=== PATIENT | male | born 1950 | race Caucasian/White ===

== ENCOUNTER 2024-03-25 10:28 | Emergency (ER) | payer OTHER, MEDICAID, SELFPAY ==
[2024-03-25 10:41] VITALS: BP 149/94; PULSE 80; RESP 20; TEMP 36.6; O2SAT 98; BMI 24.5
[2024-03-25 11:23] VITALS: BP 166/80; PULSE 78; O2SAT 98
--- NOTE | 2024-03-25 11:37 | ED_ITS ---
HPI - General Adult General Chief complaint: Urogenital-Male Stated complaint: uti and needs cathader removed Time Seen by Provider: 03/25/24 10:35 Source: patient Mode of arrival: Ambulatory History of Present Illness HPI narrative: Patient is a 73-year-old male. Has an indwelling Hatch catheter after issues with urinary retention at the end of last year. Had a follow-up appointment with urology since that time but his current catheter he states has been in for the past several months. He states he was having issues with leakage around the catheter. He was not followed up with his urologist because he felt like his urologist was not treating him appropriately. He was here in the emergency department stating that he would like treated for urinary tract infection and have his Hatch catheter removed. He denies any fevers. No abdominal pain. Review of Systems Review of Systems Narrative: See HPI Genitourinary Genitourinary: Reports system reviewed and no additional complaints, except as documented Patient History Social History Smoking Status: Current every day smoker Smoking Status: Current every day smoker tobacco type: cigarettes alcohol intake frequency: 0-2 drinks per day Substance Use Type: marijuana Exam Initial Vital Signs Initial Vital Signs: Vital Signs Temperature 97.8 F 03/25/24 10:41 Pulse Rate 80 03/25/24 10:41 Respiratory Rate 20 03/25/24 10:41 Blood Pressure 149/94 H 03/25/24 10:41 Pulse Oximetry 98 03/25/24 10:41 Oxygen Delivery Method Room Air 03/25/24 10:41 GI Inspection: non-distended Other: Hatch catheter in place in his draining Course Orders Ordered: ED Orders 03/25/24 11:37 Urine Culture Stat Vital Signs Vital signs: Vital Signs - 8 hr 03/25/24 10:41 03/25/24 11:23 Temperature 97.8 F Pulse Rate 80 78 Respiratory Rate 20 Blood Pressure 149/94 H 166/80 H Pulse Oximetry 98 98 Oxygen Delivery Method Room Air Medical Decision Making [facility] Narrative Medical decision making narrative: After discussions of the risks and benefits with the patient is Hatch catheter was removed. He understands that he may need to return to the emergency department if he does not urinate within the next several hours. A urine culture was obtained. We will hold on treating any urinary tract infection for now until then. Discharge Plan Departure Patient Disposition: Home Clinical Impression: Encounter for Hatch catheter removal Activity Restrictions/Additional Instructions: A urine culture was pending at the time your discharge we will contact you if we need to start any antibiotics based on this. Since we removed the Hatch catheter today you do need to be sure that you were drinking appropriately. If you have not urinated within the next 6-8 hours please return to the emergency department like we discussed. Return earlier if you feel like that you were unable to urinate in our developing lower abdominal pain. Contact your primary doctor for a follow-up. Stand Alone Forms: Patient Portal/API
== END 2024-03-25 12:03 | disposition home or self-care (01) ==
PROVIDERS: Emergency Provider Emergency Medicine
DX: T83.031A Leakage of indwelling urethral catheter, initial encounter (principal)
CPT/HCPCS: 87077; 87086; 87186; 99283

== ENCOUNTER 2024-05-27 11:37 | Emergency (ER) | payer OTHER, MEDICAID, SELFPAY ==
[2024-05-27 11:48] VITALS: BP 175/81; PULSE 89; RESP 16; TEMP 36.5; O2SAT 98; BMI 25.0
--- NOTE | 2024-05-27 11:48 | ED.MALEGU ---
HPI - Male Genitourinary General Chief complaint: Urogenital-Male Stated complaint: urinary issues Time Seen by Provider: 05/27/24 11:43 History of Present Illness HPI Narrative: Patient is 73-year-old male past medical history of diabetes, BPH, urethral stricture, presents to the ED from home for evaluation of urinary symptoms. States that he has had difficulty with urinary flow. States that he feels like he needs to go only dribbles, states that he did have a Hatch catheter placed and removed in March of 2024, has not followed up with urology since August of 2023. This was due to the fact that he had a ?ureteral protrusion that needed to be removed he states that since then he has always had some decreased sensation to his urethra but he has been able to urinate normally, he states that now he feels like he is not able to fully empty his bladder. He denies any numbness weakness tingling down lower extremity denies any saddle paresthesias denies any low back pain, denies any bowel or urinary incontinence or retention. States that he called his healthcare risk control consultant and was instructed to come into the ED for Urology referral. Related Data Allergies Allergy/AdvReac Type Severity Reaction Status Date / Time amoxicillin AdvReac Verified 05/27/24 11:48 Review of Systems Review of Systems Narrative: HEENT: Denies headache, eye drainage, eye irritation, head trauma, sore throat, voice change Cardiovascular: Denies any chest pain, palpitations, shortness of breath, tachycardia Respiratory: Denies any shortness of breath, cough, wheeze, stridor GI/: Denies any abdominal pain, nausea, vomiting, diarrhea, bright red blood per rectum, melanotic stools, urinary frequency, urinary retention, dysuria, hematuria, positive oliguria MSK: Denies any joint pain, muscle pains, swelling Skin: Denies any rashes, lesions, discoloration Neuro: Denies any headache, lightheadedness, dizziness, fainting, weakness Psych: Denies SI/HI Patient History Social History Smoking Status: Current every day smoker Smoking Status: Current every day smoker tobacco type: cigarettes alcohol intake frequency: 0-2 drinks per day Substance Use Type: marijuana Exam Narrative Exam Narrative: General: Cooperative, comfortable, well-developed, not in acute distress HEENT: Normocephalic, atraumatic, PERRLA, normal sclera, eyelids normal, Neck: Active full range of motion, atraumatic Chest: Normal to inspection, negative crepitus, no overlying erythema ecchymosis Respiratory: Normal respiratory effort, not in acute respiratory distress, clear to auscultation bilaterally negative cough, wheeze, tachypnea, rhonchi, rales Cardiology: Regular rate rhythm negative gallop, murmur, rubs GI/: Normal to inspection, soft, nonrigid, no tenderness to palpation, MSK: Full range of active range of motion of all 4 extremities, atraumatic Skin: No rashes lesions noted Neuro: Alert awake oriented x3, moves all 4 extremities spontaneously, cranial nerves intact, able to answer all questions appropriately follows commands appropriately Psych: Cooperative, negative suicidal or homicidal ideations Initial Vital Signs Initial Vital Signs: Vital Signs Temperature 97.7 F 05/27/24 11:48 Pulse Rate 89 05/27/24 11:48 Respiratory Rate 16 05/27/24 11:48 Blood Pressure 175/81 H 05/27/24 11:48 Pulse Oximetry 98 05/27/24 11:48 Oxygen Delivery Method Room Air 05/27/24 11:48 Course Vital Signs Vital signs: Vital Signs - 8 hr 05/27/24 11:48 Temperature 97.7 F Pulse Rate 89 Respiratory Rate 16 Blood Pressure 175/81 H Pulse Oximetry 98 Oxygen Delivery Method Room Air MDM - Male Genitourinary Lab Data Labs: Urine Dip Bedside Urine Glucose Negative Bedside Urine Bilirubin - Negative Bedside Urine Ketone - Negative Urine Specific [place] 1.025 Bedside Urine Occult Blood - Negative Bedside Urine pH 6.0 Bedside Urine Protein +/- 15 Bedside Urine Urobilinogen - Negative Bedside Urine Nitrite - Negative Bedside Urine Leukocytes - Negative Esterase MDM Narrative Medical decision making narrative: Patient is a 73-year-old male with past medical history of BPH requiring Hatch catheter has not followed up with urology in the past several months, presented here for possible UTI and referral to Urology. Urinalysis not remarkable for UTI, postvoid normal less than 5 cc. Patient without any other symptoms at this time therefore patient will be safe for discharge home with outpatient follow up with PCP and Urology. Discharge Plan Departure Patient Disposition: Home Clinical Impression: Lower urinary tract symptoms Activity Restrictions/Additional Instructions: Please follow-up with urology and PCP for your symptoms. Please read the discharge instructions sheet carefully and bring all papers to all doctor follow-up visits, as it may contain information that your doctor may want to see. Disease processes change and evolve, if your symptoms worsen or if you develop any new symptoms that are concerning to you please return for evaluation. Your evaluation today does not show any evidence of any life-threatening/serious illnesses requiring admission to the hospital or surgery. Please follow-up with your doctor for re-evaluation in approximately 1 day. Seek immediate medical attention for any worrisome symptoms. Referrals: Jermaine Hughes DO [Physician] - Stand Alone Forms: Patient Portal/API
== END 2024-05-27 12:37 | disposition home or self-care (01) ==
PROVIDERS: Emergency Provider Student in an Organized Health Care Education/Training Program
DX: R39.9 Unspecified symptoms and signs involving the genitourinary system (principal)
CPT/HCPCS: 51798; 81003; 99282

== ENCOUNTER → 2024-07-16 15:01 | Outpatient (CLI) | payer OTHER, MEDICAID, SELFPAY ==
[2024-07-16 18:53] LABS: Prostate Specific Antigen Scrn 4.89 ng/mL (0.1-4.0)
== END ==
PROVIDERS: Referring Provider Urology; Visit Provider Urology
DX: Z12.5 Encounter for screening for malignant neoplasm of prostate (principal)
CPT/HCPCS: 36415; G0103

== ENCOUNTER 2024-07-16 22:10 | Emergency (ER) | payer OTHER, MEDICAID, SELFPAY ==
[2024-07-16 22:14] VITALS: BP 176/95; PULSE 96; RESP 16; TEMP 36.9; O2SAT 96; BMI 25.7
--- NOTE | 2024-07-16 23:02 | ED.GENADULT ---
HPI - General Adult General Chief complaint: Urogenital-Male Stated complaint: sent by Urology, swelling, blockage, wants cathete Time Seen by Provider: 07/16/24 22:38 Source: patient Mode of arrival: Ambulatory History of Present Illness HPI narrative: Patient is a 73-year-old male. Underwent a urologic procedure earlier today secondary to prostate issues. He states that since this afternoon he has been unable to urinate. Is having urinary frequency, hesitancy, incontinence. He has required a Hatch catheter in the past and he feels like he was retaining urine and thinks he needs another urinary catheter. Related Data Home Medications Medication Instructions Recorded Confirmed No Known Home Medications 07/16/24 07/16/24 Allergies Allergy/AdvReac Type Severity Reaction Status Date / Time amoxicillin AdvReac Says Verified 07/16/24 22:14 something about diabetes Review of Systems Review of Systems Narrative: See HPI Patient History Social History Smoking Status: Current every day smoker Smoking Status: Current every day smoker tobacco type: cigarettes alcohol intake frequency: 0-2 drinks per day Substance Use Type: marijuana Exam Initial Vital Signs Initial Vital Signs: Vital Signs Temperature 98.4 F 07/16/24 22:14 Pulse Rate 96 H 07/16/24 22:14 Respiratory Rate 16 07/16/24 22:14 Blood Pressure 176/95 H 07/16/24 22:14 Pulse Oximetry 96 07/16/24 22:14 Oxygen Delivery Method Room Air 07/16/24 22:14 Const General: cooperative and No ill appearing GI Inspection: normal to inspection Palpation: tender Skin General: no rashes or lesions noted Neuro General: patient alert and patient awake Course Orders Ordered: ED Orders 07/16/24 23:00 Urine Culture Stat Discontinued Medications Lidocaine HCl (Lidocaine 2% (Glydo) 6 Ml Gel) 6 ml TOP NOW ONE Stop: 07/16/24 23:03 Last Admin: 07/16/24 23:12 Dose: 6 ml Documented By: PAOLA Vital Signs Vital signs: Vital Signs - 8 hr 07/16/24 22:14 07/16/24 23:44 Temperature 98.4 F Pulse Rate 96 H 85 Respiratory Rate 16 18 Blood Pressure 176/95 H 158/85 H Pulse Oximetry 96 96 Oxygen Delivery Method Room Air Room Air Medical Decision Making MDM Narrative Medical decision making narrative: Patient is retaining urine with bladder scan. A urine culture was obtained. Hatch catheter was placed. He was feeling improved. Will discharge patient with catheter in place. Will have the patient follow-up with Urology. Discharge Plan Departure Patient Disposition: Home Clinical Impression: Acute urinary retention Instructions: How to Care for Your Hatch Catheter -- Male, DI for Urinary Retention in Men Activity Restrictions/Additional Instructions: I recommend that tomorrow you contact the urology office to let them know that you were here in the emergency department and now have a catheter in place. Return to the emergency department for new worsening symptoms. Prescriptions: No Action No Known Home Medications Referrals: Miscellaneous,Doctor, MD [Primary Care Provider] - Stand Alone Forms: Patient Portal/API/Survey
[2024-07-16] MEDS: LIDOCAINE 2% (GLYDO) 6 ML GEL TOP (23:12)
[2024-07-16 23:44] VITALS: BP 158/85; PULSE 85; RESP 18; O2SAT 96
== END 2024-07-16 23:48 | disposition home or self-care (01) ==
PROVIDERS: Emergency Provider Emergency Medicine
DX: R33.8 Other retention of urine (principal); Z12.5 Encounter for screening for malignant neoplasm of prostate
CPT/HCPCS: 36415; 51798; 87086; 99283; G0103

== ENCOUNTER 2024-07-27 18:34 | Emergency (ER) | payer OTHER, MEDICAID, SELFPAY ==
[2024-07-27 18:38] VITALS: BP 203/92; PULSE 107; RESP 17; TEMP 36.8; O2SAT 95; BMI 25.7
--- NOTE | 2024-07-27 18:41 | ED.MALEGU ---
HPI - Male Genitourinary General Chief complaint: Urogenital-Male Stated complaint: catheter issue Time Seen by Provider: 07/27/24 18:39 Source: patient Mode of arrival: Ambulatory History of Present Illness HPI Narrative: 73-year-old male with history of BPH presents for blocked Caraballo catheter. Patient had Caraballo catheter placed on 07/16/2024 after urinary retention following cystoscopy. Patient states that his catheter has been functioning well up until about 4:00 a.m. today. He drained the catheter and since has not had any output into the bag. Denies any other complaints at this time. Related Data Home Medications Medication Instructions Recorded Confirmed No Known Home Medications 07/16/24 07/16/24 Allergies Allergy/AdvReac Type Severity Reaction Status Date / Time amoxicillin AdvReac Says Verified 07/27/24 18:38 something about diabetes Patient History Social History Smoking Status: Current every day smoker Smoking Status: Current every day smoker tobacco type: cigarettes alcohol intake frequency: 0-2 drinks per day Substance Use Type: marijuana Exam Initial Vital Signs Initial Vital Signs: Vital Signs Temperature 98.3 F 07/27/24 18:38 Pulse Rate 107 H 07/27/24 18:38 Respiratory Rate 17 07/27/24 18:38 Blood Pressure 203/92 H 07/27/24 18:38 Pulse Oximetry 95 07/27/24 18:38 Oxygen Delivery Method Room Air 07/27/24 18:38 Const: Awake, alert, no acute distress, nontoxic appearing Cardiac: regular rate, regular rhythm RESP: unlabored, clear bilaterally, no wheezing GI: Soft, nontender, nondistended : Caraballo catheter in place without any urine in leg bag Skin: Warm, Dry, intact, no rashes Neuro: AO x3, CN II-XII grossly intact, moves all extremities Course Orders Ordered: Discontinued Medications Lidocaine HCl (Lidocaine 2% (Glydo) 6 Ml Gel) 6 ml TOP NOW ONE Stop: 07/27/24 18:44 Last Admin: 07/27/24 19:07 Dose: 6 ml Documented By: WOOD Vital Signs Vital signs: Vital Signs - 8 hr 07/27/24 18:38 Temperature 98.3 F Pulse Rate 107 H Respiratory Rate 17 Blood Pressure 203/92 H Pulse Oximetry 95 Oxygen Delivery Method Room Air MDM - Male Genitourinary Differential Diagnosis Differential diagnosis: Likely acute retention of urine MDM Narrative Medical decision making narrative: Blocked caraballo catheter since this afternoon. Has been functioning well up until this afternoon. Catheter was exchanged with drainage of clear yellow urine. Patient reports resolution of symptoms. He states that he was still waiting for an appointment with his urologist. He was counseled to call Monday morning to ensure that he has timely urology follow up. Discharge Plan Departure Patient Disposition: Home Clinical Impression: Caraballo catheter problem Instructions: How to Care for Your Caraballo Catheter -- Male Activity Restrictions/Additional Instructions: Reach out to Dr. Hughes's office on Monday to schedule a follow up appointment. Prescriptions: No Action No Known Home Medications Referrals: Jermaine Hughes DO [Physician] - Miscellaneous,DoctorMD [Primary Care Provider] - Stand Alone Forms: Patient Portal/API/Survey
[2024-07-27] MEDS: LIDOCAINE 2% (GLYDO) 6 ML GEL TOP (19:07)
--- NOTE | 2024-07-27 19:10 | PC.NURSE ---
Catheter training and management reiterated to patient. Pt given additional leg bag for changing.
--- NOTE | 2024-07-27 19:11 | PC.NURSE ---
Pt states around 4pm the catheter stopped draining. Pt reports he has a catheter in because he has a lot of inflammation from his prostate/bladder. Pt states it feels a little uncomfortable since the catheter stopped draining. Pt denies fever or pain. Pt states he is working on follow up with Urology.
== END 2024-07-27 19:15 | disposition home or self-care (01) ==
PROVIDERS: Emergency Provider Emergency Medicine
DX: T83.9XXA Unspecified complication of genitourinary prosthetic device, implant and graft, initial encounter (principal)
CPT/HCPCS: 99283

== ENCOUNTER → 2024-07-30 09:04 | Outpatient (CLI) | payer OTHER, MEDICAID, SELFPAY | PROVIDERS: Visit Provider Urology | DX: N40.1 Benign prostatic hyperplasia with lower urinary tract symptoms (principal); R33.8 Other retention of urine; N52.9 Male erectile dysfunction, unspecified | CPT/HCPCS: 81002; 87077; 87086; 99214 ==

== ENCOUNTER 2024-09-17 12:14 | Emergency (ER) | payer OTHER, MEDICAID, SELFPAY ==
[2024-09-17 12:20] VITALS: BP 205/106; PULSE 85; RESP 18; TEMP 36.7; O2SAT 98; BMI 25.7
--- NOTE | 2024-09-17 12:30 | PC.NURSE ---
Patient here in department for painless hematuria that started this AM. Patient has indwelling catheter, this RN is getting in contact with his urology to determine catheter placement date. Patient was supposed to have a TURP done back in august but because of fluid shortages it was cancelled. Patient has noticed for the past couple of days when he has a BM that there is some urine leakage from the caraballo. No other urinary symptoms, no burning or pain. Urine in the leg bag reddish yellow, no visible clots, patent and draining.
[2024-09-17 12:37] VITALS: PULSE 85; O2SAT 96
--- NOTE | 2024-09-17 12:48 | ED.MALEGU ---
HPI - Male Genitourinary <Jude Xie MD - Last Filed: 09/20/24 09:07> General Chief complaint: Urogenital-Male Stated complaint: wearing catheter, blood in urine Time Seen by Provider: 09/17/24 12:29 Source: patient Mode of arrival: Ambulatory History of Present Illness HPI Narrative: Patient here for painless hematuria. Noticed blood in his Hatch catheter this morning. Patient has history of TURP/enlarged prostate. Had Hatch catheter changed 2 months ago. Has been doing well. He sees local urologist here at this facility Dr Pineda. Patient isn't on any blood thinners. Currently not on any antibiotics. Related Data Previous Rx's Medication Instructions Recorded ciprofloxacin HCl 500 mg tablet 500 mg PO BID #10 tabs 09/17/24 (Cipro) Allergies Allergy/AdvReac Type Severity Reaction Status Date / Time amoxicillin AdvReac Says Verified 09/18/24 11:07 something about diabetes Review of Systems <Jude Xie MD - Last Filed: 09/20/24 09:07> Review of Systems Narrative: GENERAL: Negative chills, fatigue, malaise, fever, sweats. HEENT: Negative sinus pain, ear pain, sore throat RESPIRATORY: Negative dyspnea, cough CARDIOVASCULAR: Negative chest pain, palpitations GASTROINTESTINAL: Negative nausea, vomiting, abdominal pain : Negative dysuria, frequency, positive hematuria MUSCULOSKELETAL: Negative muscle or bony pain SKIN: Negative rash, skin lesions NEUROLOGIC: Negative weakness, numbness ROS Unobtainable: All systems reviewed & are unremarkable except as noted in HPI and below Patient History <Jude Xie MD - Last Filed: 09/20/24 09:07> Medical History Chronic infection Diabetic neuropathy Diabetes Hatch catheter in place Surgical History Hx of toe surgery (2014) H/O left wrist surgery H/O right wrist surgery Hx of umbilical hernia repair H/O transurethral resection of prostate (08/2023) Social History household members: none Smoking Status: Never smoker alcohol intake: never Smoking Status: Never smoker tobacco type: cigarettes alcohol intake frequency: 0-2 drinks per day Exam <Jude Xei MD - Last Filed: 09/20/24 09:07> Narrative Exam Narrative: GENERAL: in no distress, not toxic not dyspneic HEAD: Normocephalic. EYES: Pupils equal round ENT: Mucous membranes moist. NECK: Trachea midline. CARDIOVASCULAR: Regular rate and rhythm RESPIRATORY: Clear to auscultation. Breath sounds equal bilaterally. No wheezes, rales, or rhonchi. GASTROINTESTINAL: Abdomen soft, non-tender, no suprapubic tenderness. There is tea-colored dark urine in his Hatch bag. EXTREMITIES: No gross deformities. BACK: No flank tenderness. NEURO: AOx4. SKIN: Warm and dry PSYCH: Not anxious, is cooperative Initial Vital Signs Initial Vital Signs: Vital Signs Temperature 98.1 F 09/17/24 12:20 Pulse Rate 85 09/17/24 12:20 Respiratory Rate 18 09/17/24 12:20 Blood Pressure 205/106 H 09/17/24 12:20 Pulse Oximetry 98 09/17/24 12:20 Oxygen Delivery Method Room Air 09/17/24 12:20 <Toña Ramirez DO - Last Filed: 09/19/24 08:23> Initial Vital Signs Initial Vital Signs: Vital Signs Temperature 98.1 F 09/17/24 12:20 Pulse Rate 85 09/17/24 12:20 Respiratory Rate 18 09/17/24 12:20 Blood Pressure 205/106 H 09/17/24 12:20 Pulse Oximetry 98 09/17/24 12:20 Oxygen Delivery Method Room Air 09/17/24 12:20 Course <Jude Xie MD - Last Filed: 09/20/24 09:07> Orders Ordered: Discontinued Medications Ciprofloxacin (Ciprofloxacin 250 Mg Tablet) 500 mg PO NOW ONE Stop: 09/17/24 14:15 Last Admin: 09/17/24 14:23 Dose: 500 mg Documented By: GW Vital Signs Vital signs: Vital Signs - 8 hr 09/17/24 12:20 09/17/24 12:37 Temperature 98.1 F Pulse Rate 85 85 Respiratory Rate 18 Blood Pressure 205/106 H Pulse Oximetry 98 96 Oxygen Delivery Method Room Air <Toña Ramirez DO - Last Filed: 09/19/24 08:23> Orders Ordered: Discontinued Medications Ciprofloxacin (Ciprofloxacin 250 Mg Tablet) 500 mg PO NOW ONE Stop: 09/17/24 14:15 Last Admin: 09/17/24 14:23 Dose: 500 mg Documented By: CIARA Vital Signs Vital signs: Vital Signs - 8 hr 09/17/24 12:20 09/17/24 12:37 Temperature 98.1 F Pulse Rate 85 85 Respiratory Rate 18 Blood Pressure 205/106 H Pulse Oximetry 98 96 Oxygen Delivery Method Room Air MDM - Male Genitourinary <Jude Xie MD - Last Filed: 09/20/24 09:07> Lab Data 09/17/24 13:42 09/17/24 13:42 Labs: Lab Results 09/17/24 09/17/24 Range/Units 13:01 13:42 WBC 11.3 H (4.5-11.0) X10^3/uL RBC 4.69 (4.5-5.9) X10^6/uL Hgb 14.2 (13.5-17.5) g/dL Hct 42.2 (41-53) % MCV 89.9 (80-100) fL MCH 30.3 (26-34) PG MCHC 33.7 (30-36) % RDW 14.7 (11.6-14.8) % Plt Count 325 (150-400) X10^3/uL Neut % (Auto) 72.3 (50-75) % Lymph % (Auto) 17.3 L (25-40) % [place] % (Auto) 7.0 (3-14) % Eos % (Auto) 2.1 (2-4) % Baso % (Auto) 1.3 (0-2) % Neut # (Auto) 8200 H (5983-2597) /uL Lymph # (Auto) 2000 (3833-5203) /uL [place] # (Auto) 800 (0-900) /uL Eos # (Auto) 200 (0-450) /uL Baso # (Auto) 100 (0-100) /uL Sodium 138 (137-145) mmol/L Potassium 4.3 (3.4-5.1) mmol/L Chloride 104 (98-107) mmol/L Carbon Dioxide 26 (22-32) mmol/L BUN 9 (9-20) mg/dL Creatinine 0.82 (0.66-1.25) mg/dL Estimated GFR > 60 (>60) mL/min BUN/Creatinine Ratio 11.0 (6-22) Glucose 135 H (80-110) mg/dL Calcium 9.1 (8.4-10.2) mg/dL Total Bilirubin 0.4 (0.2-1.3) mg/dL AST 50 (17-59) IU/L ALT 40 (<50) IU/L Alkaline Phosphatase 96 (38-126) U/L Total Protein 7.3 (6.3-8.2) g/dL Albumin 4.2 (3.5-5.0) g/dL Globulin 3.1 (1.7-4.1) g/dL Albumin/Globulin Ratio 1.4 (1.0-2.8) Urine Color Yellow Urine Appearance Sl cloudy Urine pH 6.0 (4.5-8.0) Ur Specific [place] 1.020 (1.000-1.035) Urine Protein Trace H (Negative) Urine Glucose (UA) Negative (Negative) g/dL Urine Ketones Negative (NEGATIVE) Urine Occult Blood 3+ H (Negative) Urine Nitrate Positive H (Negative) Urine Bilirubin Negative (NEGATIVE) Urine Urobilinogen 0.2 (0.2) E.U./dL Ur Leukocyte Esterase 2+ H (NEGATIVE) Urine RBC 5-10/hpf H (0-5/HPF) Urine WBC 5-10/hpf H (0-5/HPF) Ur Squamous Epith Cells None seen (0-5/HPF) Urine Bacteria Moderate (10-30) H (None) Ur Culture Indicated? Specimen cultured Vol Urine Centrifuged 10ml (spun) [facility] Narrative Medical decision making narrative: Patient here for painless hematuria. Noticed blood in his Hatch catheter this morning. Patient has history of TURP/enlarged prostate. Had Hatch catheter changed 2 months ago. Has been doing well. He sees local urologist here at this facility Dr Pineda. Patient isn't on any blood thinners. Currently not on any antibiotics. After history and exam CBC CMP urinalysis bladder irrigation urology consult [facility] Medical records reviewed: No recent visit for this complaint. Differential considered: Includes but not limited to cystitis UTI kidney stone Lab Test results independently reviewed as above. Pertinent findings: WBC 11.3 hemoglobin 14.2 sodium 138 potassium 4.3 BUN 9 creatinine 0.82 GFR greater than 60 urinalysis positive nitrate WBC 5-10 positive leukocyte esterase Treatments: Bladder irrigation Re-evaluations: 2:15 p.m.. Updated patient results. Patient has clear urine in the bag after irrigation. Painless. Return precautions reviewed. Reviewed with him treatment with antibiotics Cipro for acute UTI. He agrees. He has urologist to follow up with. Discussion: Appropriate for discharge home exam is reassuring. Irrigation of the bladder was successful. Clear urine after irrigation. No pain. Antibiotics have been started. Patient has established urologist to follow up with. Return precautions reviewed. They desire discharge home. Diagnosis: Hemorrhagic cystitis <Toña Ramirez DO - Last Filed: 09/19/24 08:23> Lab Data Labs: Lab Results 09/17/24 09/17/24 Range/Units 13:01 13:42 WBC 11.3 H (4.5-11.0) X10^3/uL RBC 4.69 (4.5-5.9) X10^6/uL Hgb 14.2 (13.5-17.5) g/dL Hct 42.2 (41-53) % MCV 89.9 (80-100) fL MCH 30.3 (26-34) PG MCHC 33.7 (30-36) % RDW 14.7 (11.6-14.8) % Plt Count 325 (150-400) X10^3/uL Neut % (Auto) 72.3 (50-75) % Lymph % (Auto) 17.3 L (25-40) % [place] % (Auto) 7.0 (3-14) % Eos % (Auto) 2.1 (2-4) % Baso % (Auto) 1.3 (0-2) % Neut # (Auto) 8200 H (4595-9484) /uL Lymph # (Auto) 2000 (5228-6031) /uL [place] # (Auto) 800 (0-900) /uL Eos # (Auto) 200 (0-450) /uL Baso # (Auto) 100 (0-100) /uL Sodium 138 (137-145) mmol/L Potassium 4.3 (3.4-5.1) mmol/L Chloride 104 (98-107) mmol/L Carbon Dioxide 26 (22-32) mmol/L BUN 9 (9-20) mg/dL Creatinine 0.82 (0.66-1.25) mg/dL Estimated GFR > 60 (>60) mL/min BUN/Creatinine Ratio 11.0 (6-22) Glucose 135 H (80-110) mg/dL Calcium 9.1 (8.4-10.2) mg/dL Total Bilirubin 0.4 (0.2-1.3) mg/dL AST 50 (17-59) IU/L ALT 40 (<50) IU/L Alkaline Phosphatase 96 (38-126) U/L Total Protein 7.3 (6.3-8.2) g/dL Albumin 4.2 (3.5-5.0) g/dL Globulin 3.1 (1.7-4.1) g/dL Albumin/Globulin Ratio 1.4 (1.0-2.8) Urine Color Yellow Urine Appearance Sl cloudy Urine pH 6.0 (4.5-8.0) Ur Specific [place] 1.020 (1.000-1.035) Urine Protein Trace H (Negative) Urine Glucose (UA) Negative (Negative) g/dL Urine Ketones Negative (NEGATIVE) Urine Occult Blood 3+ H (Negative) Urine Nitrate Positive H (Negative) Urine Bilirubin Negative (NEGATIVE) Urine Urobilinogen 0.2 (0.2) E.U./dL Ur Leukocyte Esterase 2+ H (NEGATIVE) Urine RBC 5-10/hpf H (0-5/HPF) Urine WBC 5-10/hpf H (0-5/HPF) Ur Squamous Epith Cells None seen (0-5/HPF) Urine Bacteria Moderate (10-30) H (None) Ur Culture Indicated? Specimen cultured Vol Urine Centrifuged 10ml (spun) [facility] Narrative Medical decision making narrative: Patient here for painless hematuria. Noticed blood in his Hatch catheter this morning. Patient has history of TURP/enlarged prostate. Had Hatch catheter changed 2 months ago. Has been doing well. He sees local urologist here at this facility Dr Pineda. Patient isn't on any blood thinners. Currently not on any antibiotics. After history and exam CBC CMP urinalysis bladder irrigation urology consult [facility] Medical records reviewed: No recent visit for this complaint. Differential considered: Includes but not limited to cystitis UTI kidney stone Lab Test results independently reviewed as above. Pertinent findings: WBC 11.3 hemoglobin 14.2 sodium 138 potassium 4.3 BUN 9 creatinine 0.82 GFR greater than 60 urinalysis positive nitrate WBC 5-10 positive leukocyte esterase Treatments: Bladder irrigation Re-evaluations: 2:15 p.m.. Updated patient results. Patient has clear urine in the bag after irrigation. Painless. Return precautions reviewed. Reviewed with him treatment with antibiotics Cipro for acute UTI. He agrees. He has urologist to follow up with. Discussion: Appropriate for discharge home exam is reassuring. Irrigation of the bladder was successful. Clear urine after irrigation. No pain. Antibiotics have been started. Patient has established urologist to follow up with. Return precautions reviewed. They desire discharge home. Diagnosis: Hemorrhagic cystitis 09/19/2024 Dr. Ramirez urine culture shows Enterococcus faecalis greater than 100,000 CFU sensitive to Cipro which patient was discharged home on Discharge Plan Departure Patient Disposition: Home Clinical Impression: Acute hemorrhagic cystitis Instructions: DI for Urinary Tract Infection (UTI) Activity Restrictions/Additional Instructions: Please call your urology office tomorrow for office appointment time within a week for re-evaluation. Antibiotics have been started for you to treat for urinary tract infection. This is likely blood in the urine is from irritation of the bladder wall. Laboratory studies are reassuring. Return if worse if any questions or concerns. Continue antibiotic tomorrow. It has been sent to your [facility] pharmacy. Return if worse if any questions or concerns Prescriptions: New ciprofloxacin HCl [Cipro] 500 mg tablet 500 mg PO BID Qty: 10 0RF Referrals: Miscellaneous,DoctorMD [Primary Care Provider] - Stand Alone Forms: Patient Portal/API/Survey
[2024-09-17 13:36] LABS: Appearance Urine UA SL CLOUDY; Bilirubin Urine UA NEGATIVE (NEGATIVE); Color Urine UA YELLOW; Glucose Urine UA NEGATIVE (Negative); Ketones Urine UA NEGATIVE (NEGATIVE); Leukocyte Esterase Urine UA 2+ (NEGATIVE); Nitrite Urine UA POSITIVE (Negative); Occult Blood Urine UA 3+ (Negative); Protein Urine UA TRACE (Negative); Urobilinogen Urine UA 0.2 E.U./dL (0.2)
[2024-09-17 13:52] LABS: Add Manual Diff / Slide Review NO; Basophils Absolute Auto 100 /uL (0-100); Basophils Percent Auto 1.3 % (0-2); Eosinophils Absolute Auto 200 /uL (0-450); Eosinophils Percent Auto 2.1 % (2-4); Hematocrit 42.2 % (41-53); Hemoglobin 14.2 g/dL (13.5-17.5); Lymphocytes Absolute Auto 2000 /uL (1100-4500); Lymphocytes Percent Auto 17.3 % (25-40); Mean Corpuscular HGB Conc 33.7 % (30-36); Mean Corpuscular Hemoglobin 30.3 PG (26-34); Mean Corpuscular Volume 89.9 fL (80-100); Monocytes Absolute Auto 800 /uL (0-900); Neutrophils Absolute Auto 8200 /uL (1500-7000); Neutrophils Percent Auto 72.3 % (50-75); Platelet Count 325 X10^3/uL (150-400); Red Blood Cell Count 4.69 X10^6/uL (4.5-5.9); Red Cell Distribution Width 14.7 % (11.6-14.8); White Blood Cell Count 11.3 X10^3/uL (4.5-11.0)
[2024-09-17 14:01] LABS: Bacteria Urine Moderate (10-30); Culture Indicated Urine Specimen Cultured; RBC Urine 5-10/HPF (0-5/HPF); Squamous Epithelial Cell Urine None Seen (0-5/HPF); Urine Volume 10mL (spun); WBC Urine 5-10/HPF (0-5/HPF)
[2024-09-17 14:10] LABS: Alanine Aminotransferase 40 IU/L (<50); Albumin 4.2 g/dL (3.5-5.0); Albumin Globulin Ratio 1.4 (1.0-2.8); Alkaline Phosphatase 96 U/L (38-126); Aspartate Aminotransferase 50 IU/L (17-59); Bilirubin Total 0.4 mg/dL (0.2-1.3); Blood Urea Nitrogen 9 mg/dL (9-20); Calcium 9.1 mg/dL (8.4-10.2); Carbon Dioxide 26 mmol/L (22-32); Chloride 104 mmol/L (98-107); Estimated Glomerular Filt Rate > 60 mL/min (>60); Globulin 3.1 g/dL (1.7-4.1); Glucose 135 mg/dL (80-110); HEMOLYSIS < 15 (0-50); Potassium 4.3 mmol/L (3.4-5.1); Sodium 138 mmol/L (137-145); Total Protein 7.3 g/dL (6.3-8.2)
[2024-09-17] MEDS: CIPROFLOXACIN 250 MG TABLET 500 MG PO (14:23)
[2024-09-17 14:24] VITALS: BP 163/83; PULSE 79; RESP 16; O2SAT 97
== END 2024-09-17 14:32 | disposition home or self-care (01) ==
PROVIDERS: Emergency Provider Emergency Medicine
DX: N30.01 Acute cystitis with hematuria (principal)
CPT/HCPCS: 80053; 81001; 85025; 87077; 87086; 87186; 99283

== ENCOUNTER → 2024-10-21 11:13 | Outpatient (CLI) | payer OTHER, MEDICAID, SELFPAY | PROVIDERS: Visit Provider Urology | DX: N40.1 Benign prostatic hyperplasia with lower urinary tract symptoms (principal) | CPT/HCPCS: 51702; 87086 ==

== ENCOUNTER → 2024-11-19 11:06 | Outpatient (CLI) | payer OTHER, MEDICAID, SELFPAY | PROVIDERS: Visit Provider Urology | DX: N40.1 Benign prostatic hyperplasia with lower urinary tract symptoms (principal) | CPT/HCPCS: 87077; 87086 ==

== ENCOUNTER → 2024-12-17 14:15 | Outpatient (CLI) | payer OTHER, MEDICAID, SELFPAY | PROVIDERS: Visit Provider Urology | DX: N40.1 Benign prostatic hyperplasia with lower urinary tract symptoms (principal); Z68.25 Body mass index [BMI] 25.0-25.9, adult | CPT/HCPCS: 51702; 87077; 87086; 87147; 87186 ==

== ENCOUNTER → 2025-01-14 14:21 | Outpatient (CLI) | payer OTHER, MEDICAID, SELFPAY | PROVIDERS: PCP Family Medicine; Visit Provider Urology | DX: N40.1 Benign prostatic hyperplasia with lower urinary tract symptoms (principal) | CPT/HCPCS: 87086 ==

== ENCOUNTER → 2025-01-24 12:25 | Outpatient (CLI) | payer OTHER, MEDICAID, SELFPAY ==
[2025-01-24 12:47] LABS: Add Manual Diff / Slide Review NO; Basophils Absolute Auto 100 /uL (0-100); Basophils Percent Auto 1.3 % (0-2); Eosinophils Absolute Auto 400 /uL (0-450); Eosinophils Percent Auto 3.5 % (2-4); Hematocrit 43.6 % (41-53); Lymphocytes Absolute Auto 2400 /uL (1100-4500); Lymphocytes Percent Auto 22.6 % (25-40); Mean Corpuscular HGB Conc 34.3 % (30-36); Mean Corpuscular Hemoglobin 31.2 PG (26-34); Mean Corpuscular Volume 90.8 fL (80-100); Monocytes Absolute Auto 800 /uL (0-900); Monocytes Percent Auto 7.4 % (3-14); Neutrophils Absolute Auto 6900 /uL (1500-7000); Neutrophils Percent Auto 65.2 % (50-75); Platelet Count 439 X10^3/uL (150-400); Red Cell Distribution Width 14.1 % (11.6-14.8); White Blood Cell Count 10.6 X10^3/uL (4.5-11.0)
[2025-01-24 13:03] LABS: Alanine Aminotransferase 36 IU/L (<50); Albumin 4.5 g/dL (3.5-5.0); Albumin Globulin Ratio 1.4 (1.0-2.8); Alkaline Phosphatase 97 U/L (38-126); Aspartate Aminotransferase 71 IU/L (17-59); BUN Creatinine Ratio 11.8 (6-22); Bilirubin Total 0.7 mg/dL (0.2-1.3); Blood Urea Nitrogen 10 mg/dL (9-20); Calcium 9.4 mg/dL (8.4-10.2); Carbon Dioxide 28 mmol/L (22-32); Chloride 101 mmol/L (98-107); Cholesterol 219 mg/dL (140-199); Estimated Glomerular Filt Rate > 60 mL/min (>60); Globulin 3.2 g/dL (1.7-4.1); Glucose 146 mg/dL (70-99); HDL Cholesterol 38 mg/dL (40-60); HEMOLYSIS 42 (0-50); LDL Cholesterol Calculated 127 mg/dL (<100); Potassium 4.6 mmol/L (3.4-5.1); Sodium 137 mmol/L (137-145); Total Protein 7.7 g/dL (6.3-8.2); Triglycerides 268 mg/dL (35-150)
[2025-01-24 14:23] LABS: Creatinine Urine Random 122.78 mg/dL
[2025-01-24 14:29] LABS: Microalbumin Urine Random 16.8 mg/dL (0-1.6)
== END ==
PROVIDERS: PCP Family Medicine; Referring Provider Family Medicine; Visit Provider Family Medicine
DX: E11.9 Type 2 diabetes mellitus without complications (principal); E11.40 Type 2 diabetes mellitus with diabetic neuropathy, unspecified
CPT/HCPCS: 36415; 80053; 80061; 82043; 82570; 85025

== ENCOUNTER 2025-02-04 12:12 | Day surgery (SDC) | payer OTHER, MEDICAID, SELFPAY ==
[2025-01-27 13:16] VITALS: BMI 25.9
[2025-01-27 13:35] VITALS: BMI 25.9
[2025-02-04] VITALS (7 sets, daily range): BP systolic 146–172; BP diastolic 85–97; PULSE 67–95; RESP 12–16; TEMP 36.2–36.6; O2SAT 95–98; BMI 24.0
--- NOTE | 2025-02-04 | PATH_ITS ---
[facility] Accession Number: [id number] No. of containers..01 Tissue . 01 Material submitted: . prostate - PROSTATE CHIPS . 01 Diagnosis: PROSTATE CHIPS (25 GRAMS), TRANSURETHRAL RESECTION: Benign prostatic hyperplasia. No evidence of malignancy. MRV 02/06/2025 1337 Local . 01 Electronically signed: . Leticia Beauchamp MD, Pathologist NPI- [id number] . 01 Gross description: . Received in formalin with two identifiers and prostate chips, are multiple ann soft tissue fragments with no hemorrhagic material or stones identified weighing 25 grams and aggregating to 7.9 x 7.7 x 1.8 cm. Approximately 50% of the specimen by weight is submitted in A1-A10. ([id number]) /MRV 02/05/2025 2137 Local . 01 Pathologist provided ICD-10: N40.0 . 01 CPT . 433484 Specimen Comment: A courtesy copy of this report has been sent to [facility] Performed at: [address] [address], [place], [place] [id number] MD Juvenal Cespedes MD Phone: [phone]
--- NOTE | 2025-02-04 13:09 | PM.PREOP ---
Pre-operative Note COVID-19 COVID-19 status: Not tested Interval Note History & Physical reviewed/Exam performed by Physician: Yes Changes to H&P: No
[2025-02-04] MEDS: LACTATED RINGERS 1,000 ML 42 ML IV ×2 (13:58→15:48)
[2025-02-04] MEDS: ACETAMINOPHEN 325 MG TABLET 975 MG PO (13:58)
[2025-02-04] MEDS: ALBUTEROL/IPRATROPIUM 3 ML AMPUL INH (14:02)
[2025-02-04] MEDS: levoFLOXacin 500 MG/100 ML PIGGYBACK 100 MG IV (14:50)
--- NOTE | 2025-02-04 15:05 | SUR.OPER ---
Lithotomy on padded OR bed, head on pillow, arms secured on padded arm boards at <90 degrees abduction. Legs secured in padded yellow fins stirrups. Hatch cath from home discontinued prior to prep.
--- NOTE | 2025-02-04 16:40 | PM.OP.1 ---
Operative Date/Time/Diagnoses Date of procedure: 02/04/25 Time of procedure: 15:00 Pre-op diagnosis: Benign prostatic hyperplasia with lower urinary tract symptoms Post-op diagnosis: same Procedure & Clinicians Procedure: Cystoscopy Transurethral resection of prostate Same procedure as scheduled: Yes Indications: 74 y/o M w/ symptoms consistent w/ BPH and LUTS who underwent a TURP with Dr. Wright in Aug at [facility] in [place], [place]. Unfortunately, he has continued to suffer from urinary retention and his cystoscopy was notable for minimal TURP defect, therefore, he opted for surgical management via a redo TURP. Surgeon: Jermaine Hughes Click Yes if Unassisted: Yes Anesthesia Type: General Operative Notes Findings: Very minimal TURP defect, coaptating lateral prostatic lobes, moderate sized intravesical median lobe Closure Type: not applicable Specimen(s): other (prostate chips) Applied: catheter Estimated Blood Loss (mL): 20 Blood products transfused: none Procedure in detail: Patient was identified in the preoperative holding area and consent confirmed. He was then brought to the operating room where general anesthesia was induced. He was then placed in the low lithotomy position. He was then prepped and draped in the usual sterile fashion. A surgical timeout was conducted and all were in agreement. Access to the bladder was obtained via a 21Fr cystoscope. Complete cystoscopy was then performed using a 30 and 70 degree lens. Bilateral ureteral orifice were easily visualized and noted to be orthotopic in nature. He had grade 3 trabeculations throughout his bladder, no concerning masses or lesions were appreciated. The cystoscope was then removed and his urethra was serially dilated from 20Fr to 30Fr using the [place] sounds. The 26Fr resectoscope with visual obturator was then advanced through his urethra and into his bladder. The working element with Gyrus loop was then assembled and passed through the resectoscope and into the bladder. Resection began at the bladder neck at the 5 o'clock position, a channel as deep as the prostatic capsule was created from the bladder neck down to immediately proximal to the verumontanum. This was repeated at the 7 o'clock position. The median bar and the median lobe were then resected to the prostatic capsule, as well as the left and right lateral prostatic lobes. All prostate specimens were then manually evacuated from the bladder using the resectoscope. Hemostasis was evaluated and noted to be excellent at case end. A 24Fr 3-way hematuria catheter was then inserted into his bladder, 45cc of sterile water was utilized for balloon insufflation. Continuous bladder irrigation was then initiated and it was noted to be clear. Anesthesia was reversed, he was extubated in the OR and transferred to the PACU in stable condition for recovery. Complications: none Post-operative Condition: stable Disposition: PACU Plan for aftercare: Will continue to run CBI for a few hours to evaluate the efflux from his catheter.? Should it remain relatively clear and with minimal blood clots, will discharge home with catheter in place and have him return to Urology clinic in 2 days for a voiding trial.? Should his efflux remain red or have significant clot burden, will admit overnight for observation and continued CBI.
--- NOTE | 2025-02-04 16:55 | SUR.PHASEI ---
Dr. Hughes aware that the patient is going to be home alone tonight. Dr. Hughes okay with patient to be discharged home Patient has a ride home.
== END 2025-02-04 18:32 | disposition home or self-care (01) ==
PROVIDERS: PCP Family Medicine; Referring Provider Urology; Visit Provider Urology
PROC: 0VT08ZZ Resection of Prostate, Via Natural or Artificial Opening Endoscopic (ICD-10-PCS; CPT 52601; principal; 2025-02-04 14:00)
DX: N40.1 Benign prostatic hyperplasia with lower urinary tract symptoms (principal); R33.9 Retention of urine, unspecified; N52.9 Male erectile dysfunction, unspecified
CPT/HCPCS: 52630; 82962; J0330; J1956; J2250; J2405; J2704; J3010

== ENCOUNTER → 2025-02-06 15:15 | Outpatient (CLI) | payer MEDICARE, MEDICAID, SELFPAY | PROVIDERS: PCP Family Medicine; Visit Provider Urology | DX: N40.1 Benign prostatic hyperplasia with lower urinary tract symptoms (principal); N52.9 Male erectile dysfunction, unspecified; Z68.25 Body mass index [BMI] 25.0-25.9, adult | CPT/HCPCS: 51798; 81002; 87086; 99213 ==

== ENCOUNTER 2025-03-10 12:11 | Day surgery (SDC) | payer MEDICARE, OTHER, MEDICAID, SELFPAY ==
--- NOTE | 2025-03-10 | PATH_ITS ---
[facility] Accession Number: [id number] No. of containers..01 Tissue . 01 Material submitted: . colon - COLON, POLYP 23 CM . 01 Diagnosis: COLON, POLYP 23 CM: Tubulovillous adenoma. No high-grade dysplasia or malignancy identified. [facility] 03/17/20251426 Local . 01 Electronically signed: . Juvenal Cespedes MD, Pathologist NPI- [id number] . 01 Gross description: . The specimen is received in formalin with two patient identifiers and Polyp 23 cm, and consists of a 3.1 x 2.0 x 1.0 cm aggregate of ann-brown, friable soft tissue, which is filtered and entirely submitted in cassettes A1 and A2. ([id number]:[id number]) /MRV 03/17/20251426 Local . 01 Pathologist provided ICD-10: D12.6 . 01 CPT . 511384 Specimen Comment: A courtesy copy of this report has been sent to [phone] Performed at: [address] [id number] MD Juvenal Cespedes MD Phone: [phone]
--- NOTE | 2025-03-10 12:40 | EKG_ITS ---
[address] [address] Test Date: 2025-03-10 Pat Name: Rogerio Kate Department: [facility] Room: Gender: Male Vegetable Picker: JOHNNA : [phone] Requested By: Order Number: [id number] Reading MD: Lazarus Tijerina MD Measurements Intervals [place] Rate: 63 P: 37 RI: 232 QRS: 9 QRSD: 80 T: 78 QT: 422 QTc: 431 Interpretive Statements Sinus rhythm with 1st degree AV block Nonspecific T wave abnormality Electronically Signed On 03-10-2025 13:46:54 PDT by Lazarus Tijerina MD
[2025-03-10] MEDS: LACTATED RINGERS 1,000 ML 42 ML IV (12:41)
[2025-03-10 12:47] VITALS: BP 142/84; PULSE 66; RESP 16; TEMP 36.3; O2SAT 96
[2025-03-10 12:51] LABS: POC Glucose 113 mg/dL (70-99)
--- NOTE | 2025-03-10 13:41 | P.HP_ITS ---
History of Present Illness History of Present Illness Date Patient Seen: 03/10/25 Chief complaint: SDC Narrative: Screening colonoscopy. 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 Acquired deformity of joint of big toe of left foot Hyperlipidemia, mixed Chronic infection Diabetic neuropathy Diabetes Hatch catheter in place Surgical History Hx of toe surgery (2014) H/O left wrist surgery H/O right wrist surgery Hx of umbilical hernia repair H/O transurethral resection of prostate (08/2023) Social History household members: none alcohol intake: never Meds Home Medications and Allergies Home Medications ?Medication ?Instructions ?Recorded ?Confirmed ?Type blood-glucose meter #1 ea 01/15/25 03/10/25 Rx lancets 33 gauge #100 ea 01/17/25 03/10/25 Rx TRUE METRIX GLUCOSE TEST strips See Rx Instructions .R oute 3XD for 02/18/25 03/10/25 Rx diabetes mellitus #100 ea Allergies Allergy/AdvReac Type Severity Reaction Status Date / Time amoxicillin AdvReac Says Verified 03/10/25 12:39 something about diabetes Exam Vital Signs (past 8 hours): - 03/10/25 12:47 Temperature 97.3 F L Pulse Rate 66 Respiratory Rate 16 Blood Pressure 142/84 H Pulse Oximetry 96 Oxygen Delivery Method Room Air Oxygen Delivery Method Room Air Objective Labs Labs: Laboratory Results - last 24 hr 03/10/25 12:48 POC Whole Bld Glucose 113 H Assessment & Plan Assessment & Plan narrative: Need for colorectal cancer screening. Risks, benefits, alternatives have been explained. Time-Based Coding :: [TOTAL MINUTES] spent with patient and on the chart (including review of chart, obtaining history, exam, reviewing outside data, placing orders, documenting exam and treatment plan, and counseling patient) on [DATE]. [employer] Worker Document charge(s): No
--- NOTE | 2025-03-10 13:43 | PM.OP.COLON ---
Operative Date/Time/Diagnoses Date of procedure: 03/10/25 Time of procedure: 14:37 Pre-op diagnosis: See indication and findings Post-op diagnosis: same Procedure & Clinicians Study performed: Colonoscopy Same procedure(s) as scheduled: Yes Surgeon: Dara Mercer Anesthesia Type: Other Procedure Notes Procedure in detail: After informed consent was obtained the patient was placed in left lateral decubitus position. The video colonoscope was introduced the rectum slowly advanced cecum. Preparation was fair. On slow withdrawal mucosa was carefully examined. The scope was removed. The patient tolerated procedure well. Blood loss none Complications none Sedation mac Findings 1. A very large multilobulated polyp probably 5 cm in size on a stalk was seen in the sigmoid colon/25 cm. Using a small snare large chunks were removed to be able to visualize the base. The base was a large over 1 cm stalk which seemed to have some pulsation. Because of this the stalk was injected with [id number] epinephrine 3 cc in several small aliquots. The hot snare was then used to remove several other large chunks. When I could adequately see around it I used a 10 mm hot snare to remove the rest. There was some significant oozing though not huge and therefore elected to place 2 clips which controlled the oozing. Small tattoo of spot was left next to the base of the polyp. 2. It was elected not to continue the colonoscopy due to the poor prep and need for very close evaluation I will be in touch with the patient regarding his pathology. Within 1-3 months he will need follow-up colonoscopy with a much better preparation.
[2025-03-10] MEDS: EPINEPHrine 1 MG/10 ML SYRINGE IV (14:10)
[2025-03-10 14:42] VITALS: BP 169/79; PULSE 57; RESP 16; TEMP 36.8; O2SAT 98
== END 2025-03-10 14:55 | disposition home or self-care (01) ==
PROVIDERS: PCP Family Medicine; Referring Provider Internal Medicine Gastroenterology; Visit Provider Internal Medicine Gastroenterology
PROC: 0DJD8ZZ Inspection of Lower Intestinal Tract, Via Natural or Artificial Opening Endoscopic (ICD-10-PCS; CPT 45378; principal; 2025-03-10 13:30)
DX: Z12.11 Encounter for screening for malignant neoplasm of colon (principal); D12.5 Benign neoplasm of sigmoid colon; E11.40 Type 2 diabetes mellitus with diabetic neuropathy, unspecified
CPT/HCPCS: 45385; 45381; 82962; 93005; 93010; J0171; J2405; J2704

== ENCOUNTER → 2025-03-20 13:19 | Outpatient (CLI) | payer OTHER, MEDICAID, SELFPAY | PROVIDERS: PCP Family Medicine; Visit Provider Urology | DX: N40.1 Benign prostatic hyperplasia with lower urinary tract symptoms (principal); N52.9 Male erectile dysfunction, unspecified | CPT/HCPCS: 51798; 81002; 87086 ==

== ENCOUNTER → 2025-04-16 08:42 | Outpatient (CLI) | payer OTHER, MEDICAID, SELFPAY ==
[2025-04-16 09:49] LABS: Alanine Aminotransferase 17 IU/L (<50); Albumin 4.2 g/dL (3.5-5.0); Albumin Globulin Ratio 1.3 (1.0-2.8); Alkaline Phosphatase 104 U/L (38-126); Blood Urea Nitrogen 11 mg/dL (9-20); Calcium 9.3 mg/dL (8.4-10.2); Carbon Dioxide 28 mmol/L (22-32); Chloride 102 mmol/L (98-107); Cholesterol 185 mg/dL (140-199); Estimated Glomerular Filt Rate > 60 mL/min (>60); Globulin 3.2 g/dL (1.7-4.1); Glucose 150 mg/dL (70-99); HDL Cholesterol 35 mg/dL (40-60); HEMOLYSIS < 15 (0-50); Potassium 4.6 mmol/L (3.4-5.1); Sodium 138 mmol/L (137-145); Total Protein 7.4 g/dL (6.3-8.2); Triglycerides 194 mg/dL (35-150)
[2025-04-16 09:52] LABS: Hemoglobin A1C% w Est Avg Glu 6.6 % (4.0-6.0)
[2025-04-16 10:44] LABS: Microalbumi Creatinin Ratio Ur 226.0 ug/mg CR (<30)
== END ==
PROVIDERS: PCP Family Medicine; Referring Provider Family Medicine; Visit Provider Family Medicine
DX: E11.9 Type 2 diabetes mellitus without complications (principal); E78.2 Mixed hyperlipidemia
CPT/HCPCS: 36415; 80053; 80061; 82043; 82570; 83036